=== PATIENT | male | born 1955 | race Caucasian/White ===

== ENCOUNTER → 2016-12-11 | Day surgery (SDC) | payer BC ==
[~2016-12-11] MED LIST: AMOXICILLIN PO; MEDROL PO; NYQUIL D COLD295 ML PO; OMEPRAZOLE40 M1 PO; PREDNISONE PO; PRILOSEC PO; VITAMIN B12-FO1 EACH PO
--- NOTE | ~2016-12-11 | OR ---
Unit #: [id number] #: [id number] Patient: ALISON ANGELO [id number] [address] [address] [id number] O MR#: [id number] NAME: ALISON ANGELO. ROOM: Date of Procedure: 12/11/2016 Admission Date: 12/11/2016 Surgeon: Ben Barriga M.D. : 1955 Attending Physician: Ben Barriga M.D. OPERATIVE REPORT PREOPERATIVE DIAGNOSES 1. Hemoccult-positive stools. 2. Right-sided abdominal pain. POSTOPERATIVE DIAGNOSES 1. Hemoccult-positive stools. 2. Right-sided abdominal pain. PROCEDURES PERFORMED 1. Esophagogastroduodenoscopy. 2. Biopsy of antrum for Helicobacter pylori testing. 3. Colonoscopy to terminal ileum. ANESTHESIA Monitored anesthesia care. FINDINGS The patient was found to have mild gastritis on upper endoscopy. On colonoscopy, the patient was found to have a normal terminal ileum and rare sigmoid diverticulum. SPECIMENS Sent to pathology. COMPLICATIONS None apparent. CONDITION The patient tolerated the procedure well. INDICATIONS FOR PROCEDURE The patient is a 61-year-old white male, who presents at this time with Hemoccult-positive stools and right-sided abdominal pain. He presents at this time for evaluation by upper and lower endoscopy. DESCRIPTION OF PROCEDURE After obtaining informed consent, the patient was brought to the endoscopy suite and after adequate monitored anesthesia care, had the endoscope placed through the mouth into the upper esophagus under direct vision. It was advanced to the second portion of the duodenum without difficulty with lumen always in view. The duodenum was normal as was duodenal bulb. The pylorus opened normally. There was some mild distal gastritis present and Unit #: [id number] #: [id number] Patient: ALISON ANGELO a biopsy was obtained for Helicobacter pylori testing. On retroflexion back to the GE junction, the patient was found to have no abnormalities found in the proximal third, middle third, or incisura. On pulling back above the GE junction, there was no stenosis, stricture, or neoplasm seen. No significant esophagitis. The remaining portion of the esophagus was within normal limits. Laryngeal structures were grossly normal as viewed from above. At this point in time, the colonoscope was placed through the anus and slowly advanced to the level of the cecum without difficulty and with the lumen always in view. We were able to pass through the ileocecal valve into the terminal ileum. The terminal ileum was normal as was the ileocecal valve and cecum. The ascending colon was normal as was the hepatic flexure, transverse colon, splenic flexure, and descending colon. In the sigmoid colon, there was just a few rare small shallow diverticulum. Other than this, no abnormalities were found in the sigmoid colon, rectosigmoid, or rectum. On retroflexing in the rectum to the anorectal junction, there were no significant abnormalities. The scope was removed without difficulty. On digital examination, there was good sphincter tone, no masses palpable. The patient went from the endoscopy suite to the recovery area in stable condition. RECOMMENDATIONS High-fiber diet, lots of liquids, tucks or wipes p.r.n. Call Sunday for pathology. Gastroesophageal reflux sheet and diverticular sheet given. Dictated by... Juan Gupta/hermes TD: 12/11/2016 21:51 JOB #: [id number] CC: Juan Carranza M.D. OPERATIVE REPORT X Ben Barriga MD X PROCEDURE OPERATIVE NOTE
== END | disposition home or self-care (01) ==
LOC: COPS 09:31
DX: K29.70 Gastritis, unspecified, without bleeding (principal); K57.30 Diverticulosis of large intestine without perforation or abscess without bleeding; K21.9 Gastro-esophageal reflux disease without esophagitis; D51.9 Vitamin B12 deficiency anemia, unspecified; I10 Essential (primary) hypertension; N52.9 Male erectile dysfunction, unspecified; Z87.891 Personal history of nicotine dependence; Z90.49 Acquired absence of other specified parts of digestive tract; Z88.0 Allergy status to penicillin; Z83.3 Family history of diabetes mellitus; Z82.49 Family history of ischemic heart disease and other diseases of the circulatory system
CPT/HCPCS: 87077; J2250